=== PATIENT | male | born 2000 | race Caucasian/White ===

== ENCOUNTER 2025-05-30 23:00 | Emergency (ER) | payer BC, SELFPAY ==
--- OUTSIDE RECORDS SUMMARY | 2025-05-30 23:03 | XMS_ITS | Patient Health Record ---
Author Organization [facility] Address [address] [place] [address] Care Team Providers Care Artificial Intelligence Specialist Name Role Phone LEONARDO BUNCH Unavailable [phone] Yaakov ROLDAN, Marcos Unavailable [phone] Reason For Referral No Information Plan Of Treatment No Information Insurance Providers Payer Name Payer Address Payer Phone Subscriber Number Group Number Insured Name Patient Relationship to Insured Coverage Start Date Coverage End Date [employer] [address] [address] [place] [address] [id number] Triston Zeng Child - Insured has Financial Responsibility 2
[2025-05-30 23:07] VITALS: BP 117/74; PULSE 96; RESP 18; TEMP 36.6; O2SAT 97; BMI 25.0
--- NOTE | 2025-05-31 00:39 | ED.WOUNDLAC ---
HPI - Wound/Laceration General Time Seen by Provider: 00:39 Date Seen: 05/31/25 Chief Complaint: Laceration/Wound Stated Complaint: right hand LAC Time Seen by Provider: 05/31/25 00:39 Source: patient Mode of arrival: ambulatory Limitations: no limitations History of Present Illness HPI narrative: 25-year-old male who presents today with a finger laceration. This occurred about 8:30 p.m., he cut it on a concrete stake. He washed it with soap and water home, tetanus is up-to-date. Related Data Home Medications ?Medication ?Instructions ?Recorded ?Confirmed No Known Home Medications 05/30/25 05/30/25 Allergies Allergy/AdvReac Type Severity Reaction Status Date / Time No Known Drug Allergies Allergy Verified 05/30/25 23:12 Exam Narrative: Exam Narrative: General: well nourished , NAD Head: Atraumatic and normocephalic ENT: External ears and external nose are normal Eyes: Conjunctiva clear, pupils are equal reactive, external ocular motions are intact Neck: Full spontaneous range of motion of the neck Lungs: No respiratory distress Musculoskeletal: No tenderness or deformity Neurologic: No gross focal neurologic deficits Skin: 14 mm full-thickness laceration over the right index MCP joint. Full flexion and extension of the index finger. Psych: Mood and affect are appropriate Const: Vital Signs, click to edit/add: Vital Signs - 24 hr 05/30/25 23:07 Temperature 97.8 F Pulse Rate [Left P ulse Oximeter] 96 Respiratory Rate 18 Blood Pressure [Ri ght Upper Arm] 117/74 Pulse Oximetry 97 Oxygen Delivery Me thod Room Air Course Course ED Course: Reviewed prior records, no prior since 2005 Patient presents today with laceration to the dorsum of the right hand over the MCP joint. No involvement of the joint itself, tendon function is normal. Laceration repaired and patient is stable for discharge. Procedure; laceration repair, 14 mm full-thickness right hand up dorsum over the MCP. Risks and benefits discussed with patient, we discussed Dermabond for this but given that is over a joint and a little bit gaping I do not think this would provide adequate closure. Verbal consent was obtained. Wound was prepped with Hibiclens. Lidocaine 1% with epinephrine was injected, 2 mL total. Edges were closed with for Vicryl Rapide 5 0 simple interrupted sutures. Patient tolerated this well and stable for discharge. Vital Signs Vital signs: Initial Vital Signs Temperature 97.8 F 05/30/25 23:07 Temperature Source Temporal Artery Scan 05/30/25 23:07 Pulse Rate 96 05/30/25 23:07 Pulse Rhythm Regular 05/30/25 23:07 Respiratory Rate 18 05/30/25 23:07 Blood Pressure 117/74 05/30/25 23:07 Blood Pressure Mean 88 05/30/25 23:07 Blood Pressure Position Sitting 05/30/25 23:07 Pulse Oximetry 97 05/30/25 23:07 Oxygen Delivery Method Room Air 05/30/25 23:07 Vital Signs Temperature 97.8 F 05/30/25 23:07 Pulse Rate 96 05/30/25 23:07 Respiratory Rate 18 05/30/25 23:07 Blood Pressure 117/74 05/30/25 23:07 Pulse Oximetry 97 05/30/25 23:07 Oxygen Delivery Method Room Air 05/30/25 23:07 Temperature 97.8 F 05/30/25 23:07 Pulse Rate 96 05/30/25 23:07 Respiratory Rate 18 05/30/25 23:07 Blood Pressure 117/74 05/30/25 23:07 Pulse Oximetry 97 05/30/25 23:07 Oxygen Delivery Method Room Air 05/30/25 23:07 Discharge Plan Discharge Clinical Impression: Laceration of hand, right Patient Disposition: Home, Self-Care Condition: Stable Instructions: Laceration (DC) Additional Instructions: Sutures are absorbable and will fall out on their own about 2-3 weeks. You may have them removed in 10 days if you prefer. Wash gently with soap and water No forceful gripping or grasping for 3 days Discharge Diet: Regular Prescriptions: No Action No Known Home Medications Follow Up/Referrals: Pj Meehan MD [Primary Care Provider, Family Practice] Stand Alone Forms: [facility] Info Instructions
[2025-05-31 01:09] VITALS: BP 125/77; PULSE 97; RESP 18; TEMP 36.4; O2SAT 96
--- OUTSIDE RECORDS SUMMARY | 2025-05-31 01:25 | XMS_ITS | Clinical Summary ---
Author Organization [facility] Address [address] [place] [address] Care Team Providers Care Regulatory Affairs Director Name Role Phone None Reported, Pcp Primary Care Provider Unavail able Source Comments Patient records contain information from all sites at [facility]. For routine questions regarding patient records, call [phone] during business hours, M-F 8:00 AM - 5:00 PM Central Time. Record requests for emergency care only can be directed to [phone] at any time.[facility] Allergies No known active allergies Medications No known medications Social History Tobacco Use Types Packs/Day Years Used Date Smoking Tobacco: Never Tobacco Cessation:Counseling Given: Not Answered Sex and Gender Information Value Date Recorded Sex Assigned at Not on file Legal Sex Male 3:51 PM [employer] Gender Identity Not on file Sexual Orientation Not on file Last Filed Vital Signs Vital Sign Reading Time Taken Comments Blood Pressure 134/89 10/15/2023 5:56 PM [employer] Pulse 96 10/15/2023 5:56 PM [employer] Temperature 37.7 C (99.9 F) 10/15/2023 5:56 PM [employer] Respiratory Rate 16 10/15/2023 5:56 PM [employer] Oxygen Saturation 96% 10/15/2023 5:56 PM [employer] Inhaled Oxygen Concentration - - Weight 80.1 kg (176 lb 9.4 oz) 10/15/2023 5:58 P M [employer] Height 180.3 cm (5' 11) 10/15/2023 5:58 PM [employer] Body Mass Index 24.63 10/15/2023 5:58 PM [employer] Plan of Treatment Health Maintenance Due Date Last Done Comments HIV Screening 2002 Hepatitis C Screening 2002 DTaP,Tdap,and Td Vaccines (7 - Td or Tdap) 05/29/2024 05/29/2014, 09/16/2006, 04/17/2003, Additional history exists COVID-19 Vaccine ( season) 2024 Depression Screening (Annual PHQ-2) 11/01/2024 Influenza Vaccine (#1) 2025 Hepatitis B Vaccines Completed 01/22/2003, 2002, 2002 Pneumococcal vaccine (0-49 years) Aged Out 04/17/2003, 2002, 2002, Additional history exists No longer eligible based on patient's age to complete this topic IPV Vaccines Completed 09/16/2006, 12/31, 2002, Additional history exists HPV Vaccines Completed 11/26/2014, 06/02, 05/29/2014 Insurance * Guarantor: Stephane Zeng Account Type Relation to Patient Date of Phone Billing Address Personal/Family Self 2000 [address] [place] [address] [employer] Care Teams Regulatory Affairs Director Relationship Specialty Start Date End Date None Reported, Pcp PCP - General Family Medicine 10/15/23
== END 2025-05-31 01:26 | disposition home or self-care (01) ==
LOC: ED 05-31 01:24
PROVIDERS: Emergency Provider Family Medicine; PCP Family Medicine
DX: S61.411A Laceration without foreign body of right hand, initial encounter (principal); W26.9XXA Contact with unspecified sharp object(s), initial encounter
CPT/HCPCS: 12001; 99283